=== PATIENT | female | born 1955 | race African-American/Black ===

== ENCOUNTER → 2019-01-04 | Outpatient (CLI) | payer BC ==
--- NOTE | 2019-01-08 09:10 | XCELERA REPORT ---
[address] [address] Lower Extremity Arterial Evaluation Name: JACQUELINE JACKSON Age: 63 yrs Gender: Female : 1955 Patient Status: Outpatient Patient Location: [facility] Study Date: 01/04/2019 01:23 PM Procedure: A color flow and duplex scan of the lower extremity arteries was performed bilaterally with velocity and waveform anaylsis. Ankle brachial indicies performed. Reason For Study: PAIN Ordering Physician: DESITNY COSME Performed By: Gaviota Bird Measurements and Calculations Right Left LOSS PREVENTION AUDITOR PSV 145.4 169.9 cm/sec Prox PFA PSV -125.7 -145.4cm/sec Prox SFA PSV -130.4 -143.0cm/sec Mid SFA PSV -99.9 -112.4cm/sec Dist SFA PSV -97.4 -108.2cm/sec Prox Pop A PSV 91.1 76.6 cm/sec Prox VALENTINA PSV 76.8 59.7 cm/sec Dist VALENTINA PSV 71.5 71.7 cm/sec Prox SQUARE CUTTER PSV 86.7 98.7 cm/sec Dist SQUARE CUTTER PSV 81.3 91.3 cm/sec Clark Pedis PSV 102.5 42.9 cm/sec Right Side Arterial Evaluation Normal velocity and triphasic waveforms noted from the Common Femoral artery to the infrageniculate vessels . Biphasic with normal velocity in the Dorsalis Pedis artery. Ankle Brachial index 1.14. Left Side Arterial Evaluation Normal velocity and triphasic waveforms noted from the Common Femoral artery to the infrageniculate vessels . Biphasic with normal velocity in the Dorsalis Pedis artery. Ankle Brachial index 1.08. Interpretation Summary Mild hemodynamically significant lesions in the left lower extremity only, on duplex imaging, at rest. Near normal study with slight Dorsalis Pedis changes only. ANDREW's are normal suggesting normal supply, no obstructions. : DESTINY COSME > Thor Sun
== END ==
LOC: SP 13:01
PROVIDERS: ATTEND Nurse Practitioner Primary Care
DX: M79.662 Pain in left lower leg (principal)
CPT/HCPCS: 93925

== ENCOUNTER 2019-05-04 23:27 | Emergency (ER) | payer BC ==
--- NOTE | 2019-05-04 23:44 | ER Document Report ---
ED Medical Screen (RME) - General Chief Complaint: Weakness Stated Complaint: LEFT SIDED WEAKNESS Time Seen by Provider: 05/04/19 23:36 Primary Care Provider: DESTINY COSME FNP-C [Primary Care Provider] - Follow up as needed Mode of Arrival: Wheelchair Information source: Patient Notes: 63-year-old female presents emergency department with left arm and leg weakness. Reports symptoms for the past 2 weeks. She reports that for 20 years she was on a blood thinner generic Plavix for her legs. Reports her primary care provider took her off her blood thinner 2 months ago. She reports 2 weeks ago she started having the weakness to her arm or leg. She reports she has been falling. 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 Patient with obvious weakness to her left arm and leg. No complaints of fever vomiting diarrhea. Denies history of stroke although she mentions that her primary care provider reports she may have had a mini stroke and was setting up a referral to neurologist. I have greeted and performed a rapid initial assessment of this patient. A comprehensive ED assessment and evaluation of the patient, analysis of test results and completion of the medical decision making process will be conducted by additional ED providers. Dictation of this chart was performed using voice recognition software; therefore, there may be some unintended grammatical errors. TRAVEL OUTSIDE OF THE [place] IN LAST 30 DAYS: No Doctor's Discharge - Discharge Referrals: DESTINY COSME FNP-C [Primary Care Provider] - Follow up as needed
[2019-05-05 00:38] LABS: INTERNATIONAL RATION (INR) 0.93
[2019-05-05 00:39] LABS: PARTIAL THROMBOPLASTIN TIME 34.6 SEC (23.5-35.8)
[2019-05-05 00:40] LABS: ABSOLUTE BASOPHILS # (AUTO) 0.1 10^3/uL (0.0-0.2); ABSOLUTE EOSINOPHILS # (AUTO) 0.1 10^3/uL (0.0-0.6); ABSOLUTE LYMPHOCYTES (AUTO) 3.8 10^3/uL (0.5-4.7); ABSOLUTE MONOCYTES (AUTO) 0.5 10^3/uL (0.1-1.4); ABSOLUTE NEUT (AUTO) 2.9 10^3/uL (1.7-8.2); BASOPHILS % (AUTO) 0.9 % (0-2); HEMATOCRIT 46.8 % (36.0-47.0); HEMOGLOBIN 16.3 g/dL (12.0-15.5); LYMPHOCYTES % (AUTO) 51.2 % (13-45); MEAN CORPUSCULAR HEMOGLOBIN 33.4 pg (27.0-33.4); MEAN CORPUSCULAR HGB CONC 34.7 g/dL (32.0-36.0); MEAN CORPUSCULAR VOLUME 96 fl (80-97); MONOCYTES % (AUTO) 7.1 % (3-13); PLATELET COUNT 353 10^3/uL (150-450); RED BLOOD COUNT 4.86 10^6/uL (3.72-5.28); RED CELL DISTRIBUTION WIDTH 14.3 % (11.5-14.0); SEGMENTED NEUTROPHILS % (AUTO) 39.8 % (42-78); TOTAL CELLS COUNTED % (AUTO) 100 %; WHITE BLOOD COUNT 7.4 10^3/uL (4.0-10.5)
[2019-05-05 00:45] LABS: ALBUMIN 4.3 g/dL (3.5-5.0); ALKALINE PHOSPHATASE 85 U/L (38-126); ANION GAP 9 (5-19); ASPARTATE AMINO TRANSFERASE 22 U/L (14-36); BILIRUBIN,DIRECT 0.2 mg/dL (0.0-0.4); BILIRUBIN,TOTAL 0.4 mg/dL (0.2-1.3); BLOOD UREA NITROGEN 12 mg/dL (7-20); CALCIUM 10.3 mg/dL (8.4-10.2); CARBON DIOXIDE 23 mmol/L (22-30); CHLORIDE 107 mmol/L (98-107); CREATINE KINASE 122 U/L (30-135); GLUCOSE 100 mg/dL (75-110); POTASSIUM 4.3 mmol/L (3.6-5.0); TOTAL PROTEIN 7.5 g/dL (6.3-8.2)
--- NOTE | 2019-05-05 00:51 | ER Document Report ---
ED Neuro Symptoms/Deficit - General Mode of Arrival: Wheelchair Notes: Patient is a 63-year-old female that comes to the emergency department for chief complaint of left arm weakness and left leg weakness. Patient states she has noticed this for over a week, she was hoping there is nothing wrong and it would simply go away but it has become more noticeable. Her son brought her to the emergency department. She denies difficulty with speech or vision but she does report her balance is worse than previously. She denies history of CVA in the past, she does smoke, have a history of hypertension and hyperlipidemia. She was previously on Plavix 2 months ago but was taken off because there was not a clear indication for this before. TRAVEL OUTSIDE OF THE [place] IN LAST 30 DAYS: No <OPAL LORENZO - Last Filed: 05/05/19 06:48> <KVNG BARRERA - Last Filed: 05/05/19 16:24> - General Chief Complaint: S/S of Possible Stroke Stated Complaint: LEFT SIDED WEAKNESS Time Seen by Provider: 05/04/19 23:36 Primary Care Provider: DESTINY COSME FNP-C [Primary Care Provider] - Follow up as needed - Related Data Allergies/Adverse Reactions: aspirin Adverse Reaction (Verified 05/04/19 23:44) Past Medical History - General Information source: Patient - Social History Smoking Status: Current Every Day Smoker Smoking Education Provided: Yes - <3 min Frequency of alcohol use: None Drug Abuse: None Lives with: Family Family History: Reviewed & Not Pertinent Patient has suicidal ideation: No Patient has homicidal ideation: No - Past Medical History Cardiac Medical History: Reports: Hx Hypercholesterolemia, Hx Hypertension - Immunizations Immunizations up to date: Yes Hx Diphtheria, Pertussis, Tetanus Vaccination: Yes <OPAL LORENZO - Last Filed: 05/05/19 06:48> Review of Systems - Review of Systems Constitutional: No symptoms reported EENT: No symptoms reported Cardiovascular: No symptoms reported Respiratory: No symptoms reported Gastrointestinal: No symptoms reported Genitourinary: No symptoms reported Female Genitourinary: No symptoms reported Musculoskeletal: See HPI Skin: No symptoms reported Hematologic/Lymphatic: No symptoms reported Neurological/Psychological: See HPI <OPAL LORENZO Last Filed: 05/05/19 06:48> Physical Exam - Vital signs Vitals: Temp Pulse Resp BP Pulse Ox 97.2 F 85 18 126/76 H 96 05/04/19 23:37 05/04/19 23:37 05/04/19 23:37 05/04/19 23:37 05/04/19 23:37 - Notes Notes: GENERAL: Alert, interacts well. No acute distress. HEAD: Normocephalic, atraumatic. EYES: Pupils equal, round, and reactive to light. Extraocular movements intact. ENT: Oral mucosa moist, tongue midline. Oropharynx unremarkable. Airway patent. NECK: Full range of motion. Supple. Trachea midline. LUNGS: Clear to auscultation bilaterally, no wheezes, rales, or rhonchi. No res piratory distress. HEART: Regular rate and rhythm. No murmur ABDOMEN: Soft, non-tender. Non-distended. Bowel sounds present in all 4 quadrants. GENITOURINARY: Deferred EXTREMITIES: Moves all 4 extremities spontaneously. No edema, normal radial and dorsalis pedis pulses bilaterally. No cyanosis. BACK: no cervical, thoracic, lumbar midline tenderness. No saddle anesthesia, normal distal neurovascular exam. NEUROLOGICAL: Alert and oriented x3. Normal speech. Patient cannot perform hmnszp-[id number]-[id number] testing with the left arm, has pronator drift of the left arm, and his obvious strength deficit in the left leg. Otherwise completely normal neurological exam. Cranial nerves II through XII grossly intact. PSYCH: Normal affect, normal mood. SKIN: Warm, dry, normal turgor. No rashes or lesions noted. <OPAL LORENZO - Last Filed: 05/05/19 06:48> - Vital signs Vitals: Temp Pulse Resp BP Pulse Ox 97.2 F 85 18 126/76 H 96 05/04/19 23:37 05/04/19 23:37 05/04/19 23:37 05/04/19 23:37 05/04/19 23:37 <KVNG BARRERA - Last Filed: 05/05/19 16:24> Course - Re-evaluation Re-evalutation: Patient with NIH of 4, she does have pronator drift on the left, difficulty with finger-nose testing on the left arm, weakness in the left arm against gravity, and weakness in the left leg. No neurological deficits otherwise including no facial droop or visual symptoms. Normal speech and cognition. Patient well outside of the window for TPA. Chest x-ray unremarkable, CBC, chemistry unremarkable, urinalysis borderline and urine culture was placed. EKG shows no acute findings. CT of the head showing hypodense area with 2 mm midline shift on the right side which is either ischemic stroke versus mass. No noted intracranial bleed. I discussed with Dr. Melchor. He does not recommend transfer at this time, he does recommend that patient have MRI order placed and in the morning this MRI can be performed to ascertain whether this is ischemic stroke or mass. It is felt this is more likely an old stroke. I did discuss with patient, she is very agreeable to stay for the MRI to help with the disposition. - Vital Signs Vital signs: Temp Pulse Resp BP Pulse Ox 97.2 F 75 13 125/75 97 05/04/19 23:37 05/05/19 00:26 05/05/19 00:26 05/05/19 00:26 05/05/19 00:26 - Laboratory Result Diagrams: 05/05/19 00:20 05/05/19 00:20 Laboratory results interpreted by me: 05/05/19 05/05/19 00:20 00:20 Hgb 16.3 H RDW 14.3 H Lymph % (Auto) 51.2 H Seg Neutrophils % 39.8 L Est GFR (MDRD) Non-Af 58 L Calcium 10.3 H - EKG Interpretation by Me Additional EKG results interpreted by me: Sinus rhythm at a rate of 69, QTC of 425, normal axis, no T wave inversions or ST segment changes in consecutive leads. <OPAL LORENZO - Last Filed: 05/05/19 06:48> - Re-evaluation Re-evalutation: 05/05/19 08:05 Assumed care of patient from LONNIE Lorenzo. Patient with left-sided weakness that has been ongoing and progressively getting worse for the past [address] is concerning for an acute stroke but also there may be a possible mass. We are pending MRI to evaluate for mass to decide level of care for admission. Patient is well aware of the plan. Of note she has not been given aspirin because she has an allergy to it. She is not on any other blood thinners. Went and examined patient. She indeed does have left-sided pronator drift. And left leg weakness. She has no dysarthria. She has no nystagmus. She has difficulty with [id number]-ra-wwlo on the left arm. She is otherwise stable. We will continue to monitor. 05/05/19 12:41 Noted MRI reading. Discussed with Dr. Duran, ER attending. We will give the patient 10 mg of Decadron. Rounded on patient and updated her about MRI findings. She has a preference to be transferred to [facility] in [place]. Page [facility] neurosurgery. Spoke with Dr. Torres, neurosurgery. We discussed MRI findings, CXR results, exam findings. He agrees with plan for transfer -- requests copies of imaging studies and labs. Would like for patient to be admitted to the hospitalist service. Will await return page from hospitalist team. 05/05/19 13:[address] Christopher De Dios, hospitalist at [facility]. He accepts patient. Would like for her to go to a medical bed. Updated Dr. Duran and she agrees with the plan. Patient is stable and will await transfer. Impression: Right sided parietal mass with vasogenic edema and mass effect. This is causing left sided arm and leg weakness. Patient will be transferred to [facility] for higher level of care. Patient aware of the plan and agrees. 05/05/19 16:22 Transport is here for patient. Rounded on her. She is very stable. Her vital signs have remained the same. She has not developed any further weakness. She has no dysarthria. She is alert and interactive. She is safe for transport. - Vital Signs Vital signs: Temp Pulse Resp BP Pulse Ox 97.2 F 69 17 117/76 94 05/04/19 23:37 05/05/19 06:00 05/05/19 06:01 05/05/19 06:01 05/05/19 06:01 - Laboratory Result Diagrams: 05/05/19 00:20 05/05/19 00:20 Laboratory results interpreted by me: 05/05/19 05/05/19 05/05/19 00:20 00:20 00:30 Hgb 16.3 H RDW 14.3 H Lymph % (Auto) 51.2 H Seg Neutrophils % 39.8 L Est GFR (MDRD) Non-Af 58 L Calcium 10.3 H Urine Blood MODERATE H Ur Leukocyte Esterase TRACE H <BARRERA,KVNG M - Last Filed: 05/05/19 16:24> ED Alteplase [employer]/Exc Criteria - Inclusion Criteria: 1: Patient presented to ED within 3 hours of acute ischemic stroke symptom onset? -: No 2: Did baseline CT exclude intracranial hemorrhage and/or other risk factors? -: No 3: Is the age of the patient 18 years of age or greater? -: Yes : If any of the above questions are answered "NO" then stop, patient is not a candidate for Alteplase, : If all of the above questions are answered "YES" then continue with Exc lusion Criteria. <MANIMICHAELOPAL - Last Filed: 05/05/19 06:48> ED NIH Stroke Scale - NIH Stroke Scale *: 1. NIH scale should be completed with appropriate accompanying assessment tools. *: 2. The NIH should reflect what the patient is capable of doing and should not be coached by the clinician. 1a. Level of Consciousness: 0=Alert;keenly responsive -: 1=Drowsy -: 2=Obtunded -: 3=Coma/unresponsive or reflex to noxious stimuli. 1a. Responses: 0 1b. Orientation Questions: a. What month is it? -: b. How old are you? -: 0=Answers both questions correctly. -: 1=Answers one question correctly or patient is intubated or has orotracheal trauma. -: 2=Answers neither question correctly. 1b. Responses: 0 1c. Response to commands: a. Open and close eyes? -: b. Range Mounter and release hand? -: Credit is given despite weakness. Demonstration of task is permitted. Substitute command if hands cannot be used. -: 0=Performs both tasks correctly -: 1=Performs one task correctly -: 2=Performs neither task correctly 1c. Responses: 0 2. Gaze: Establish eye contact and instruct patient to "Follow my finger" -: 0=Normal -: 1=Partial gaze palsy. Gaze is abnormal in one or both eyes, but where forced deviation or total gaze paresis is not present. -: 2=Forced deviation or total gaze paresis. 2. Responses: 0 3. Visual Garsia: Sees fingers in all four quadrants. -: 0=No visual loss. -: 1=Partial hemianopsia. -: 2=Complete hemianopsia. -: 3=Bilateral hemianopsia (including Cortical blindness) 3. Responses: 0 4. Facial Movement: Instruct patient to: -: a. Show me your teeth -: b. Raise your eyebrows -: c. Close your eyes -: d. Smile -: 0=Normal symmetrical movement -: 1=Minor paralysis (flattened nasolabial fold, asymmetry on smiling). -: 2=Partial paralysis (total or near total paralysis of lower face). -: 3=Complete paralysis of upper and lower face 4. Responses: 0 5. Motor functions (left arm): Alternate sides and extend each arm with palms down (90 degrees if sitting or 45 degrees for supine). -: 0=No drift;limb holds for full 10 seconds. -: 1=Drift; limb holds but drifts down before full 10 seconds, but does not hit bed. -: 2=Some effort against gravity; limb cannot get to or maintain position. -: 3=No effort against gravity; limb falls. -: 4=No movement. -: UN=Amputation, joint fusion, explain in comments. 5. Responses (left arm): 1 5. Motor Functions (right arm): Alternate sides and extend each arm with palms down (90 degrees if sitting or 45 degrees for supine). -: 0=No drift;limb holds for full 10 seconds. -: 1=Drift; limb holds but drifts down before full 10 seconds, but does not hit bed. -: 2=Some effort against gravity; limb cannot get to or maintain position. -: 3=No effort against gravity; limb falls. -: 4=No movement. -: UN=Amputation, joint fusion, explain in comments. 5. Responses (right arm): 0 6. Motor Functions (left leg): With patient lying supine, alternate sides and extend each leg (30 degrees always while supine). -: 0=No drift, leg holds position for full 5 seconds -: 1=Drift; leg falls before full 5 seconds but does not hit bed. -: 2=Some effort against gravity, leg falls to bed but some effort against gravity. -: 3=No effort against gravity, leg falls to bed immediately. -: 4=No movement. -: UN=Amputation, joint fusion; explain in comments. 6. Responses (left leg): 2 6. Motor Functions (right leg): With patient lying supine, alternate sides and extend each leg (30 degrees always while supine). -: 0=No drift, leg holds position for full 5 seconds -: 1=Drift; leg falls before full 5 seconds but does not hit bed. -: 2=Some effort against gravity, leg falls to bed but some effort against gravity. -: 3=No effort against gravity, leg falls to bed immediately. -: 4=No movement. -: UN=Amputation, joint fusion; explain in comments. 6. Responses (right leg): 0 7. Limb Ataxia: With eyes open instruct patient to: -: a. "Touch your finger to your nose". -: b. "Touch your heel to your peña" -: 0=Absent -: 1=Present in one limb. -: 2=Present in two limbs. -: UN=Amputation or joint fusion; explain in comments. 7. Responses: 1 8. Sensory: Test sensation using pinprick or noxious stimuli. Test as many body parts as possible. -: 0=Normal;no sensory loss -: 1=Mile to moderate sensory loss (patient feels pin prick but is less sharp on affected side). -: 2=Severe or total sensory loss. 8. Responses: 0 9. Best Language: Instruct patient to: -: a. "Describe what you see in this picture." -: b. "Name the items in this picture." -: c. "Read these sentences." -: 0=No aphasia, normal -: 1=Mild to moderate aphasia. -: 2=Severe aphasia -: 3=Mute, global aphasia, no usable speech or auditory comprehension. 9. Responses: 0 10. Articulation, Dysarthia: Instruct patient to: -: "Read these words" or "Repeat these words" -: 0=Normal -: 1=Mild to moderate; patient may slur some words but can be understood without difficulty. -: 2=Severe; patients speech so slurred as to be unintelligible in the absence of dysphasia. -: UN=Intubated or other physical barrier, explain in comments. 10. Responses: 0 11. Extinction or inattention: 0=No abnormality -: 1= Visual, tactile, auditory, spatial, or personal inattention or extinction to bilateral simulation in one or the sensory modalities. -: 2=Profound niurka-inattention or niurka-inattention to more than one modality; does not recognize own hand. 11. Responses: 0 Total Score: 4 <OPAL LORENZO - Last Filed: 05/05/19 06:48> Discharge <OPAL LORENZO - Last Filed: 05/05/19 06:48> <KVNG BARRERA - Last Filed: 05/05/19 16:24> - Discharge Clinical Impression: Left arm weakness, Left leg weakness Condition: Stable Disposition: [facility] Referrals: DESTINY COSME, NURSE WOUND-C [Primary Care Provider] - Follow up as needed
[2019-05-05 00:52] LABS: PROTHROMBIN TIME 12.5 SEC (11.4-15.4)
[2019-05-05 00:57] LABS: CREATINE KINASE MB 0.91 ng/mL (<4.55)
[2019-05-05 00:58] LABS: TROPONIN I < 0.012 ng/mL
--- NOTE | 2019-05-05 01:11 | RADIOLOGY REPORT (SQ) ---
CT HEAD WITHOUT IV CONTRAST EXAM DATE: 05/04/2019 11:41 PM CDT HISTORY: Left arm and leg weakness. COMPARISON: None. TECHNIQUE: CT scan of the brain without IV contrast. This exam was performed according to our departmental dose-optimization program, which includes automated exposure control, adjustment of the mA and/or kV according to patient size and/or use of iterative reconstruction technique. FINDINGS: There is a large area of hypodensity predominantly involving the white matter of the right frontal and parietal lobes, with mass effect on the overlying cortical sulci along with 2 mm right to left midline shift. No definite lesion is identified although evaluation is limited without IV contrast. No acute intracranial hemorrhage. The paranasal sinuses are clear. No acute skull fracture. IMPRESSION: 1. Large area of hypodensity in the right hemicranium with overlying mass effect and 2 mm midline shift. This may be secondary to an occult mass versus acute ischemia. Contrast-enhanced MRI is recommended for complete evaluation. 2. No acute intracranial hemorrhage.
--- NOTE | 2019-05-05 01:22 | RADIOLOGY REPORT (SQ) ---
EXAM DESCRIPTION: XR CHEST 1 VIEW COMPLETED DATE/TME: 05/04/2019 23:41 CLINICAL HISTORY: 63 years, Female, LEFT ARM LEGWEAKNESS COMPARISON: None. NUMBER OF VIEWS: 1 TECHNIQUE: Single PA view of the chest was obtained. LIMITATIONS: None. FINDINGS: Unremarkable cardiac and mediastinal silhouette. Heart size is normal. Lungs are clear without focal opacity, pneumothorax or pleural effusions. The visualized bones are within normal limits. IMPRESSION: No acute cardiopulmonary abnormalities. copyright 2010 [employer]- All Rights Reserved
[2019-05-05 02:17] LABS: APPEARANCE,URINE CLEAR; BILIRUBIN,URINE NEGATIVE (NEGATIVE); COLOR,URINE STRAW; GLUCOSE, URINE NEGATIVE (NEGATIVE); KETONES,URINE NEGATIVE (NEGATIVE); LEUKOCYTE ESTERASE,URINE TRACE (NEGATIVE); NITRITE,URINE NEGATIVE (NEGATIVE); PROTEIN,URINE NEGATIVE (NEGATIVE); URINE SPECIFIC GRAVITY 1.004; UROBILINOGEN,URINE NEGATIVE mg/dL (<2.0)
--- NOTE | 2019-05-05 08:09 | EKG REPORT ---
SEVERITY:- OTHERWISE NORMAL ECG - SINUS RHYTHM MINIMAL ST ELEVATION, INFERIOR LEADS : Confirmed by: Tonny Avalos MD 05-May-2019 08:08:20
--- NOTE | 2019-05-05 11:51 | RADIOLOGY REPORT (SQ) ---
EXAM DESCRIPTION: MRI HEAD COMBO COMPLETED DATE/TIME: 05/05/2019 11:14 am REASON FOR STUDY: eval abnormal CT, left sided weakness COMPARISON: None. TECHNIQUE: Multiplanar imaging includes noncontrasted T1, T2, FLAIR, diffusion with ADC map and post gadolinium contrast T1 sequences. Images stored on PACS. CONTRAST TYPE AND DOSE: 10 mL Dotarem. RENAL FUNCTION: Not indicated. ACR Type II contrast agent associated with few, if any, unconfounded cases of NSF LIMITATIONS: None. FINDINGS: ANATOMY: See below. CSF SPACES: Normal in size and contour. No hemorrhage. CEREBRUM: There is a 12 x 15 mm enhancing intra-axial mass in the right parietal lobe. There is wagner cent vasogenic edema. Approximately 3 mm of right to left midline shift. No hemorrhage. POSTERIOR FOSSA: No signal alteration. No hemorrhage. No edema, masses, or mass effect. Internal albert tory canals, cerebellopontine angles, mastoids normal. No enhancing lesions. No abnormal enhancement post contrast. DIFFUSION IMAGING: Negative for acute or subacute infarction. ORBITS: No masses. Globes normal. PARANASAL SINUSES: No fluid levels. Mucosa normal. OTHER: No other significant finding. IMPRESSION: Right parietal lobe solitary mass with associated vasogenic edema suspicious for astrocy sugar or solitary metastasis. No hemorrhage. EVIDENCE OF ACUTE STROKE: NO. TECHNICAL DOCUMENTATION: JOB ID: [id number] [employer]- All Rights Reserved Reading location - IP/workstation name: [email or web address]
[2019-05-05] MEDS ORDERED: DEXAMETHASONE SOD PHOS INJ 10 MG/1 ML VIAL IV ONE (11:53)
[2019-05-05 16:49] VITALS: BP 119/66
== END 2019-05-05 16:35 | disposition short-term general hospital (02) ==
LOC: ER 23:27
DX: R53.1 Weakness (principal); G93.9 Disorder of brain, unspecified; F17.200 Nicotine dependence, unspecified, uncomplicated; I10 Essential (primary) hypertension; E78.5 Hyperlipidemia, unspecified; Z88.6 Allergy status to analgesic agent
CPT/HCPCS: 93005; 36415; 87086; 82553; 82550; 85025; 85610; 85730; 80053; 81001; 84484; 70553; 71045; 70450; 93010; A9576; J1100; 96374; 99285

== ENCOUNTER → 2019-07-02 | Outpatient (CLI) | payer BC ==
--- NOTE | 2019-07-02 16:04 | RADIOLOGY REPORT (SQ) ---
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 RADIONUCLIDE AND DOSE: 21.5 millicuries Tc99m HDP. The route of agent administration: Intravenous. ADDITIONAL DRUGS AND DOSES: None. TECHNIQUE: Routine delayed images at 3 hour post radionuclide injection acquired of the bony skeleto n including anterior and posterior whole-body projections and additional focused images as needed. LIMITATIONS: None. FINDINGS: BONES: Focal increased uptake posterior L3 vertebral body. Uptake right superior calvariu m. KIDNEYS: Symmetric excretion without obstruction. OTHER: No other significant finding. IMPRESSION: Uptake associated with recent craniotomy. Nonspecific uptake L3. COMMENT: Quality measure 147: Current bone scan is compared with any available plain radiographs, p rior bone scans, and CT/MRI. TECHNICAL DOCUMENTATION: JOB ID: [id number] [employer]- All Rights Reserved Reading location - IP/workstation name: [email or web address]
== END ==
LOC: RAD 08:24
PROVIDERS: ATTEND Internal Medicine Hematology & Oncology
DX: C34.90 Malignant neoplasm of unspecified part of unspecified bronchus or lung (principal); C79.31 Secondary malignant neoplasm of brain
CPT/HCPCS: 78306; A9561; Q9969

== ENCOUNTER 2019-07-09 06:32 | Day surgery (SDC) | payer BC ==
[~2019-07-09 06:32] MED LIST: CEFAZOLIN SODIUM 1 GM in DEXTROSE 5%-WATER 50 ML IV PRN; DEXTROSE 5%-1/2 NORMAL SALINE 1,000 ML IV PRN; DIAZEPAM 5 MG TABLET PO PRN; OXYCODONE-ACETAMINOPHEN 5-325 MG TABLET PO PRN
[2019-07-09] MEDS ORDERED: OXYCODONE-ACETAMINOPHEN 5-325 MG TABLET ONE (06:40)
[2019-07-09] MEDS ORDERED: DIAZEPAM 5 MG TABLET ONE (06:40)
[2019-07-09 07:32] LABS: ABSOLUTE BASOPHILS # (AUTO) 0.1 10^3/uL (0.0-0.2); ABSOLUTE EOSINOPHILS # (AUTO) 0.1 10^3/uL (0.0-0.6); ABSOLUTE LYMPHOCYTES (AUTO) 2.7 10^3/uL (0.5-4.7); ABSOLUTE MONOCYTES (AUTO) 0.5 10^3/uL (0.1-1.4); ABSOLUTE NEUT (AUTO) 2.7 10^3/uL (1.7-8.2); BASOPHILS % (AUTO) 0.9 % (0-2); EOSINOPHILS % (AUTO) 1.5 % (0-6); HEMATOCRIT 44.6 % (36.0-47.0); HEMOGLOBIN 15.6 g/dL (12.0-15.5); LYMPHOCYTES % (AUTO) 44.5 % (13-45); MEAN CORPUSCULAR HEMOGLOBIN 34.1 pg (27.0-33.4); MEAN CORPUSCULAR VOLUME 97 fl (80-97); PLATELET COUNT 370 10^3/uL (150-450); RED BLOOD COUNT 4.58 10^6/uL (3.72-5.28); SEGMENTED NEUTROPHILS % (AUTO) 45.1 % (42-78); TOTAL CELLS COUNTED % (AUTO) 100 %
[2019-07-09 07:37] LABS: ANION GAP 6 (5-19); BLOOD UREA NITROGEN 13 mg/dL (7-20); CALCIUM 9.7 mg/dL (8.4-10.2); CARBON DIOXIDE 27 mmol/L (22-30); CHLORIDE 109 mmol/L (98-107); GLUCOSE 100 mg/dL (75-110); POTASSIUM 4.1 mmol/L (3.6-5.0)
[2019-07-09] MEDS ORDERED: LIDOCAINE 0.5% INJ-PF (5 MG/ML) 50 ML SDV ONE ×2 (08:16→09:24)
[2019-07-09] MEDS ORDERED: BACITRACIN INJ 50,000 UNIT VIAL ONE (08:16)
[2019-07-09] MEDS ORDERED: MIDAZOLAM 2 MG/2 ML INJ ONE (08:22)
[2019-07-09] MEDS ORDERED: FENTANYL CITRATE INJ/PF 100 MCG/2 ML AMPUL ONE (08:22)
--- NOTE | 2019-07-09 08:46 | RADIOLOGY REPORT (SQ) ---
EXAM DESCRIPTION: CHEST SINGLE VIEW COMPLETED DATE/TIME: 07/09/2019 6:47 am REASON FOR STUDY: preop COMPARISON: 05/05/2019. EXAM PARAMETERS: NUMBER OF VIEWS: One view. TECHNIQUE: Single frontal radiographic view of the chest acquired. RADIATION DOSE: NA LIMITATIONS: None. FINDINGS: LUNGS AND PLEURA: No opacities, masses or pneumothorax. No pleural effusion. MEDIASTINUM AND HILAR STRUCTURES: No masses. Contour normal. HEART AND VASCULAR STRUCTURES: Heart normal in size. Normal vasculature. BONES: No acute findings. HARDWARE: None in the chest. OTHER: No other significant finding. IMPRESSION: NO ACUTE RADIOGRAPHIC FINDING IN THE CHEST. TECHNICAL DOCUMENTATION: JOB ID: [id number] [employer]- All Rights Reserved Reading location - IP/workstation name: [email or web address]
--- NOTE | 2019-07-09 09:52 | Discharge Summary ---
Discharge Summary (SDC) - Discharge Final Diagnosis: Lung cancer Date of Surgery: 07/09/19 Discharge Date: 07/09/19 Condition: Fair Treatment or Instructions: Discharge home [after recovery per ASU criteria]. Diet ,as tolerated, when fully awake advance as tolerated. Activities within moderation encouraged. Follow up in my office by appointment in about [1 week]. Call for appointment. Leave wounds [covered], [keep clean and dry, until office visit in 1 to 2 weeks]. Hold of on school/work [until evaluation in office]. Meds per med rec. Percocet. May shower [in 48 hrs], [try to keep operated area as dry as possible]. Prescriptions: Oxycodone HCl/Acetaminophen [Percocet 5-325 mg Tablet] 1 tab PO ASDIR PRN #15 tab PRN Reason: Referrals: DESTINY COSME FNP-C [Primary Care Provider] - Discharge Diet: As Tolerated Respiratory Treatments at Home: Deep Breathing/Coughing Discharge Activity: Activity As Tolerated Report the Following to Your Physician Immediately: Shortness of Breath
--- NOTE | 2019-07-09 09:55 | Operative Report ---
Operative Report DATE OF SURGERY: 07/09/19 PREOPERATIVE DIAGNOSIS: Lung cancer. POSTOPERATIVE DIAGNOSIS: Lung cancer. OPERATION: 1. Ultrasound evaluation and guided access into the right internal jugular vein. 2. Insertion of Port-A-Cath via real-time access in the right internal jugular vein. 3. Angiogram and interpretation. SURGEON: SONIA LANCE INFORMATION TECHNOLOGY ACCOUNT MANAGER: None. ANESTHESIA: Moderate Sedation TISSUE REMOVED OR ALTERED: Not applicable. COMPLICATIONS: None. ESTIMATED BLOOD LOSS: 5 mL. INTRAOPERATIVE FINDINGS: Of a satisfactory right internal jugular vein about 1.2 cm in diameter. Safe and secure access. Position of catheter with the tip down in the right atrium. Easy egress of blood and ingress of heparinized solution. Postprocedure chest x-ray showed hardware in good position, no untoward findings. PROCEDURE: After obtaining informed consent, the patient was taken to the [place] and positioned supine. The [right] neck and chest were prepared with chlorhexidine and draped out with sterile linen. After the " universal timeout", in which it was verified that the patient continued to receive antibiotic, the procedure commenced. A steriley sheathed ultrasound probe was used to evaluate the [right] internal jugular vein. Local anesthesia was infiltrated adjacent to the probe. Access into the [right] internal jugular vein was obtained using a micropuncture needle, followed by micropuncture wire and then a micropuncture catheter. This was followed by introduction of a 0.035 guidewire the tip of which was placed down into the inferior vena cava . The port sites was marked , locally anesthetized and incision made. Dissection now proceeded to the deep subcutaneous subcutaneous tissues so that a pocket for the port was made. Meticulous hemostasis was secured and the catheter was tunneled between the 2 incisions. Proximally, the catheter was now positioned using a peel-away sheath. Distally the catheter was tailored to an appropriate length and then mated to the port using the contained fixating device. The port was now placed in the pocket and the catheter optimally positioned. The port was accessed with a Wise needle and an angiogram done under digital subtraction. The findings as dictated. With adequate and satisfactory positioning, both lumens of the chamber were irrigated with heparinized solution. The wounds were now closed using interrupted 3-0 PDS to the subcutaneous tissues and a continuous subcuticular suture of 4-0 Monocryl to the skin. These are reinforced with Steri-Strips over benzoin and then dressings applied. Time: 0.8 minute. Dose: 3.51 m Gy Contrast: 5 Mls. Isovue 300. Copies of the dictated operative report for Dr. Sonia Sun MD.
--- NOTE | 2019-07-09 10:00 | RADIOLOGY REPORT (SQ) ---
EXAM DESCRIPTION: PORTACATH INSERTION COMPLETED DATE/TIME: 07/09/2019 9:39 am REASON FOR STUDY: C34.9 LUNG CA/C79.31 BRAIN CA C34.90 MALIGNANT NEOPLASM OF UNSP PART OF UNSP BRON CHUS OR L COMPARISON: None. FLUOROSCOPY TIME: 0.8 minutes Spot images saved to PACS. TECHNIQUE: Intra-operative images acquired during surgical procedure to evaluate progress. NUMBER OF IMAGES: 3 LIMITATIONS: None. FINDINGS: Fluoroscopy was provided for intraoperative procedure. Please refer to the operative repo rt for further discussion. IMPRESSION: IMAGE(S) OBTAINED DURING PROCEDURE. COMMENT: Quality ID [id number]: Final reports for procedures using fluoroscopy that document radiation exp osure indices, or exposure time and number of fluorographic images (if radiation exposure indices are not available) Please consult full operative report of the attending physician for description of the procedure. TECHNICAL DOCUMENTATION: JOB ID: [id number] [employer]- All Rights Reserved Reading location - IP/workstation name: [email or web address]
[2019-07-09 11:24] VITALS: BP 101/61
== END 2019-07-09 11:15 | disposition home or self-care (01) ==
LOC: CCL 06:32
PROVIDERS: ATTEND Surgery
DX: C34.90 Malignant neoplasm of unspecified part of unspecified bronchus or lung (principal); I10 Essential (primary) hypertension; E78.00 Pure hypercholesterolemia, unspecified; Z79.899 Other long term (current) drug therapy; F17.210 Nicotine dependence, cigarettes, uncomplicated; C79.31 Secondary malignant neoplasm of brain; Z01.818 Encounter for other preprocedural examination
CPT/HCPCS: 36415; 85025; 80048; 36561; 76937; 77001; 71045; C1769; C1752; C1788; Q9967; J2250; J3490 ×2; J0690; J3010; J7060; J1644

== ENCOUNTER 2019-08-15 12:22 | Outpatient (CLI) | payer BC ==
[~2019-08-15 12:22] MED LIST changes: -CEFAZOLIN SODIUM 1 GM in DEXTROSE 5%-WATER 50 ML IV PRN; -DEXTROSE 5%-1/2 NORMAL SALINE 1,000 ML IV PRN; -DIAZEPAM 5 MG TABLET PO PRN; +NORMAL SALINE 250 ML IV PRN; -OXYCODONE-ACETAMINOPHEN 5-325 MG TABLET PO PRN; +PEMBROLIZUMAB 200 MG in NORMAL SALINE 50 ML IV PRN
[2019-08-15 13:23] VITALS: BP 135/76
== END 2019-08-15 14:13 | disposition home or self-care (01) ==
LOC: II 12:22 → 5TH 13:16 → II 14:13
PROVIDERS: ATTEND Internal Medicine
DX: Z51.11 Encounter for antineoplastic chemotherapy (principal); C34.90 Malignant neoplasm of unspecified part of unspecified bronchus or lung
CPT/HCPCS: 96413; J9271; J1642

== ENCOUNTER → 2019-08-31 | Outpatient (CLI) | payer BC ==
--- NOTE | 2019-08-31 13:39 | RADIOLOGY REPORT (SQ) ---
EXAM DESCRIPTION: SHOULDER RIGHT 2 OR MORE VIEWS COMPLETED DATE/TIME: 08/31/2019 11:30 am REASON FOR STUDY: M25.511 PAIN IN RIGHT SHOULDER M25.511 PAIN IN RIGHT SHOULDER M54.2 CERVICALGIA COMPARISON: None. NUMBER OF VIEWS: Three views. TECHNIQUE: Internal rotation, external rotation, and Y view images acquired of the right shoulder. LIMITATIONS: None. FINDINGS: MINERALIZATION: Decreased. BONES: No acute fracture. No worrisome bone lesions. Acromioclavicular osteoarthropathy, mild. JOINTS: No dislocation. VISUALIZED LUNGS AND RIBS: No pneumothorax. No rib fracture. SOFT TISSUES: No radiopaque foreign body. OTHER: Right-sided chest port with catheter tip at SVC. IMPRESSION: NEGATIVE STUDY OF THE RIGHT SHOULDER. NO RADIOGRAPHIC EVIDENCE OF ACUTE INJURY. TECHNICAL DOCUMENTATION: JOB ID: [id number] [employer] All Rights Reserved Reading location - IP/workstation name: [email or web address]
--- NOTE | 2019-08-31 14:35 | RADIOLOGY REPORT (SQ) ---
EXAM DESCRIPTION: CERV SP 3 VIEW OR LESS COMPLETED DATE/TIME: 08/31/2019 11:30 am REASON FOR STUDY: M54.2 CERVICALGIA M25.511 PAIN IN RIGHT SHOULDER M54.2 CERVICALGIA COMPARISON: None. NUMBER OF VIEWS: Three views. TECHNIQUE: AP, lateral and odontoid radiographic images acquired of the cervical spine. LIMITATIONS: None. FINDINGS: MINERALIZATION: Normal. ALIGNMENT: Anatomic. VERTEBRAE: Vertebral bodies of normal height. DISCS: Discs are narrowed from C4-C7 with marginal osteophytes. The osteophytes at C6-7 appear to in clude uncovertebral osteophytes. HARDWARE: None in the spine. SOFT TISSUES: No masses or calcifications. Lung apices clear. OTHER: No other significant finding. IMPRESSION: Degenerative disc disease and spondylosis. TECHNICAL DOCUMENTATION: JOB ID: [id number] [email or web address]- All Rights Reserved Reading location - IP/workstation name: [email or web address]
== END ==
LOC: RAD 11:11
PROVIDERS: ATTEND Nurse Practitioner Primary Care
DX: M25.511 Pain in right shoulder (principal); M50.323 Other cervical disc degeneration at C6-C7 level; M54.2 Cervicalgia
CPT/HCPCS: 72040

== ENCOUNTER 2019-09-05 12:45 | Outpatient (CLI) | payer BC, MEDICARE ==
[2019-09-05 13:11] VITALS: BP 133/66
== END 2019-09-05 14:28 | disposition home or self-care (01) ==
LOC: II 12:45 → 5TH 12:48 → II 14:28
PROVIDERS: ATTEND Internal Medicine
DX: Z51.11 Encounter for antineoplastic chemotherapy (principal); C34.90 Malignant neoplasm of unspecified part of unspecified bronchus or lung
CPT/HCPCS: 96413; J9271; J1642

== ENCOUNTER 2019-09-26 12:20 | Outpatient (CLI) | payer MEDICARE ==
[~2019-09-26 12:20] MED LIST changes: +NORMAL SALINE 250 ML @ KVO IV PRN; -NORMAL SALINE 250 ML IV PRN
[2019-09-26 12:34] VITALS: BP 132/77
== END 2019-09-26 13:39 | disposition home or self-care (01) ==
LOC: II 12:20 → 5TH 13:05 → II 13:39
PROVIDERS: ATTEND Internal Medicine
DX: Z51.11 Encounter for antineoplastic chemotherapy (principal); C34.90 Malignant neoplasm of unspecified part of unspecified bronchus or lung
CPT/HCPCS: 96413; J9271; J1642

== ENCOUNTER 2019-10-17 12:12 | Outpatient (CLI) | payer MEDICARE, OTHER ==
[~2019-10-17 12:12] MED LIST changes: -NORMAL SALINE 250 ML @ KVO IV PRN; +NORMAL SALINE 250 ML IV PRN
[2019-10-17 12:42] VITALS: BP 96/50
== END 2019-10-17 13:30 | disposition home or self-care (01) ==
LOC: II 12:12 → 5TH 12:30 → II 13:30
PROVIDERS: ATTEND Internal Medicine
DX: Z51.11 Encounter for antineoplastic chemotherapy (principal); C34.90 Malignant neoplasm of unspecified part of unspecified bronchus or lung
CPT/HCPCS: 96413; J9271; J1642

== ENCOUNTER 2019-11-07 11:17 | Outpatient (CLI) | payer MEDICARE ==
[2019-11-07 11:29] VITALS: BP 123/77
== END 2019-11-07 12:35 | disposition home or self-care (01) ==
LOC: II 11:17 → 5TH 11:58 → II 12:35
PROVIDERS: ATTEND Internal Medicine
DX: Z51.11 Encounter for antineoplastic chemotherapy (principal); C34.90 Malignant neoplasm of unspecified part of unspecified bronchus or lung
CPT/HCPCS: 96413; J9271; J1642

== ENCOUNTER 2019-11-28 10:15 | Outpatient (CLI) | payer MEDICARE ==
[2019-11-28 10:24] VITALS: BP 112/65
== END 2019-11-28 11:43 | disposition home or self-care (01) ==
LOC: II 10:15 → 5TH 10:17 → II 11:43
PROVIDERS: ATTEND Internal Medicine
DX: Z51.11 Encounter for antineoplastic chemotherapy (principal); C34.90 Malignant neoplasm of unspecified part of unspecified bronchus or lung
CPT/HCPCS: 96413; J9271; J1642

== ENCOUNTER 2019-12-19 10:42 | Outpatient (CLI) | payer MEDICARE ==
[2019-12-19 10:53] VITALS: BP 107/63
== END 2019-12-19 12:20 | disposition home or self-care (01) ==
LOC: 5TH 10:42 → II 10:42
PROVIDERS: ATTEND Internal Medicine
DX: Z51.11 Encounter for antineoplastic chemotherapy (principal); C34.90 Malignant neoplasm of unspecified part of unspecified bronchus or lung
CPT/HCPCS: 96413; J9271; J1642

== ENCOUNTER → 2019-12-19 | Outpatient (CLI) | payer MEDICARE ==
--- NOTE | 2019-12-19 17:39 | RADIOLOGY REPORT (SQ) ---
EXAM DESCRIPTION: MRI HEAD COMBO IMAGES COMPLETED DATE/TIME: 12/19/2019 4:51 pm REASON FOR STUDY: C34.90 MALIGNANT NEOPLASM OF UNSP PART OF UNSP BRONCHUS OR LUNG C34.90 MALIGNANT NEOPLASM OF UNSP PART OF UNSP BRONCHUS OR L COMPARISON: CT brain 05/05/2019 MRI brain 05/05/2019 Whole-body bone scan 07/02/2019 TECHNIQUE: Multiplanar imaging includes noncontrasted T1, T2, FLAIR, diffusion with ADC map and post gadolinium contrast T1 sequences. Images stored on PACS. CONTRAST TYPE AND DOSE: 10 mL Dotarem. RENAL FUNCTION: Not indicated. ACR Type II contrast agent associated with few, if any, unconfounded cases of NSF LIMITATIONS: None. FINDINGS: CSF SPACES: Normal in size and contour. No hemorrhage. CEREBRUM: Patient is post right posterior frontal craniotomy and resection of a brain metastatic lesi on in the right posterior frontal carbajal-white junction. A tiny focus of encephalomalacia is present a long the right precentral gyrus axial T2 image 30. Minimal adjacent increased FLAIR/ T2 signal from gliosis. No contrast enhancement worrisome for recurrent tumor. Benign dural enhancement deep to th e craniotomy flap. Remainder of the brain parenchyma demonstrates mild spotty increased FLAIR/ T2 signal in the bifronta l and biparietal white matter from chronic small vessel ischemic change. POSTERIOR FOSSA: No signal alteration. No hemorrhage. No edema, masses, or mass effect. Internal albert tory canals, cerebellopontine angles, mastoids normal. No enhancing lesions. No abnormal enhancement post contrast. DIFFUSION IMAGING: Negative for acute or subacute infarction. ORBITS: No masses. Globes normal. PARANASAL SINUSES: No fluid levels. Mucosa normal. OTHER: No other significant finding. IMPRESSION: Post resection of a right posterior frontal metastatic lesion. Focal encephalomalacia i n the right precentral gyrus is present with adjacent minimal gliosis. No enhancement worrisome for recurrent tumor. EVIDENCE OF ACUTE STROKE: NO. TECHNICAL DOCUMENTATION: JOB ID: [id number] 2010 [employer]- All Rights Reserved Reading location - IP/workstation name: [email or web address]
== END ==
LOC: RAD 15:43
PROVIDERS: ATTEND Internal Medicine
DX: C34.90 Malignant neoplasm of unspecified part of unspecified bronchus or lung (principal)
CPT/HCPCS: 82565; 70553; A9576

== ENCOUNTER → 2020-01-01 | Outpatient (CLI) | payer MEDICARE, OTHER ==
--- NOTE | 2020-01-01 13:09 | RADIOLOGY REPORT (SQ) ---
EXAM DESCRIPTION: PET CT SKULL/THIGH IMAGES COMPLETED DATE/TIME: 01/01/2020 12:10 pm REASON FOR STUDY: C34.90 MALIGNANT NEOPLASM OF UNSP PART OF UNSP BRONCHUS OR LUNG C34.90 MALIGNANT NEOPLASM OF UNSP PART OF UNSP BRONCHUS OR L COMPARISON: None. RADIONUCLIDE AND DOSE: 9.8 mCi F18 FDG The route of agent administration: Intravenous FASTING BLOOD SUGAR: 102 mg/dl CONTRAST TYPE AND DOSE: No CT contrast given. TECHNIQUE: Blood glucose level was verified. Above dose of FDG was injected intravenously. 2-D seg mented attenuation correction images were obtained from the base of the skull to the midthighs. Nonc ontrast CT images were obtained for attenuation correction and fusion with emission images. CT image s were performed without oral or intravenous contrast and are not sensitive for parenchymal lesions. A series of overlapping emission PET images were obtained. Images reviewed and manipulated at [facility] work station by the radiologist. Images stored on PACS. LIMITATIONS: None. FINDINGS: HEAD AND NECK: No areas of abnormal metabolic activity in the soft tissues of the head and neck. CHEST: No areas of abnormal metabolic activity in the chest. ABDOMEN AND PELVIS: No areas of abnormal metabolic activity in the abdomen or pelvis. Expected physi ologic activity is present in the genitourinary system and bowel. PROXIMAL LOWER EXTREMITIES: No areas of abnormal metabolic activity in the soft tissues of the lower extremities. BONES: No abnormal metabolic activity in the visualized skeleton. ADDITIONAL CT FINDINGS: Mild emphysema upper lobes. OTHER: No other significant findings. IMPRESSION: Negative PET. TECHNICAL DOCUMENTATION: JOB ID: [id number] 2010 [employer]- All Rights Reserved Reading location - IP/workstation name: [email or web address]
== END ==
LOC: RAD 08:35
PROVIDERS: ATTEND Internal Medicine
DX: Z51.11 Encounter for antineoplastic chemotherapy (principal); C34.90 Malignant neoplasm of unspecified part of unspecified bronchus or lung; C79.31 Secondary malignant neoplasm of brain
CPT/HCPCS: 78815; A9552

== ENCOUNTER 2020-03-21 10:05 | Emergency (ER) | payer MEDICARE ==
[2020-03-21] MEDS ORDERED: ONDANSETRON HCL INJ/PF 4 MG/2 ML SDV IV ONE (10:53)
[2020-03-21] MEDS ORDERED: MECLIZINE HCL 25 MG TABLET PO ONE (10:54)
[2020-03-21] MEDS ORDERED: NORMAL SALINE 1000 ML 1,000 ML IV ONE (10:54)
--- NOTE | 2020-03-21 10:55 | ER Document Report ---
ED Medical Screen (RME) - General Chief Complaint: Abdominal Pain Stated Complaint: ABDOMINAL PAIN Time Seen by Provider: 03/21/20 10:48 Primary Care Provider: REAL SAVAGE FNP-C [Primary Care Provider] - Follow up as needed Mode of Arrival: Wheelchair Information source: Patient Notes: Patient presents with a 6-day history of abdominal pain. Patient states that initially the pain was to the upper abdomen but is since migrated to the left lower quadrant. Patient reports nausea vomiting x1 episode today. Patient denies any fever or urinary symptoms. Patient complains of dizziness as well. Patient reports a history of GERD, hypertension, dyslipidemia, restless leg syndrome. I have greeted and performed a rapid initial assessment of this patient. A c omprehensive ED assessment and evaluation of the patient, analysis of test results and completion of the medical decision making process will be conducted by additional ED providers. TRAVEL OUTSIDE OF THE [place] IN LAST 30 DAYS: No - Related Data Allergies/Adverse Reactions: minocycline Allergy (Verified 07/09/19 06:48) aspirin Adverse Reaction (Verified 05/04/19 23:44) Past Medical History - Social History Chew tobacco use (# tins/day): No Frequency of alcohol use: Occasional Drug Abuse: None - Past Medical History Cardiac Medical History: Reports: Hx Hypercholesterolemia, Hx Hypertension Denies: Hx Coronary Artery Disease, Hx Heart Attack Pulmonary Medical History: Denies: Hx Asthma, Hx Bronchitis, Hx COPD, Hx Pneumonia Neurological Medical History: Denies: Hx Cerebrovascular Accident, Hx Seizures Musculoskeltal Medical History: Reports Hx Arthritis - neck back - Immunizations Immunizations up to date: Yes Hx Diphtheria, Pertussis, Tetanus Vaccination: Yes Physical Exam - Vital signs Vitals: Temp Pulse Resp BP Pulse Ox 98.5 F 109 H 22 H 129/60 H 97 03/21/20 10:13 03/21/20 10:13 03/21/20 10:13 03/21/20 10:13 03/21/20 10:13 - Abdominal Tenderness: Tender - Left lower quadrant tenderness Course - Vital Signs Vital signs: Temp Pulse Resp BP Pulse Ox 98.5 F 109 H 22 H 129/60 H 97 03/21/20 10:13 03/21/20 10:13 03/21/20 10:13 03/21/20 10:13 03/21/20 10:13 Doctor's Discharge - Discharge Referrals: REAL SAVAGE, PROGRAM CONSULTANT-C [Primary Care Provider] - Follow up as needed
[2020-03-21 11:22] LABS: ABSOLUTE BASOPHILS # (AUTO) 0.1 10^3/uL (0.0-0.2); ABSOLUTE LYMPHOCYTES (AUTO) 2.4 10^3/uL (0.5-4.7); ABSOLUTE MONOCYTES (AUTO) 0.7 10^3/uL (0.1-1.4); ABSOLUTE NEUT (AUTO) 2.2 10^3/uL (1.7-8.2); EOSINOPHILS % (AUTO) 0.2 % (0-6); HEMATOCRIT 46.9 % (36.0-47.0); HEMOGLOBIN 16.5 g/dL (12.0-15.5); LYMPHOCYTES % (AUTO) 44.7 % (13-45); MEAN CORPUSCULAR HGB CONC 35.3 g/dL (32.0-36.0); MEAN CORPUSCULAR VOLUME 97 fl (80-97); MONOCYTES % (AUTO) 12.5 % (3-13); PLATELET COUNT 318 10^3/uL (150-450); RED BLOOD COUNT 4.86 10^6/uL (3.72-5.28); RED CELL DISTRIBUTION WIDTH 13.6 % (11.5-14.0); SEGMENTED NEUTROPHILS % (AUTO) 41.6 % (42-78); TOTAL CELLS COUNTED % (AUTO) 100 %; WHITE BLOOD COUNT 5.4 10^3/uL (4.0-10.5)
[2020-03-21 11:44] LABS: ALBUMIN 4.5 g/dL (3.5-5.0); ALKALINE PHOSPHATASE 78 U/L (38-126); ANION GAP 7 (5-19); ASPARTATE AMINO TRANSFERASE 26 U/L (14-36); BILIRUBIN,DIRECT 0.2 mg/dL (0.0-0.4); BILIRUBIN,TOTAL 0.9 mg/dL (0.2-1.3); BLOOD UREA NITROGEN 11 mg/dL (7-20); CALCIUM 9.7 mg/dL (8.4-10.2); CARBON DIOXIDE 27 mmol/L (22-30); CHLORIDE 103 mmol/L (98-107); GLUCOSE 113 mg/dL (75-110); POTASSIUM 3.8 mmol/L (3.6-5.0); TOTAL PROTEIN 7.2 g/dL (6.3-8.2)
--- NOTE | 2020-03-21 12:31 | ER Document Report ---
ED GI/ - General Chief Complaint: Abdominal Pain Stated Complaint: ABDOMINAL PAIN Time Seen by Provider: 03/21/20 10:48 Primary Care Provider: REAL SAVAGE FNP-C [NO LOCAL MD] - Follow up as needed Mode of Arrival: Wheelchair Notes: CHIEF COMPLAINT: Abdominal pain HPI: 64-year-old female presenting with abdominal pain over the last 6 days. Patient states that she had developed upper abdominal discomfort similar to gastritis that she has had since she was a child. Burning and discomfort with eating in the epigastric region which is now rotated into the lower abdomen. States this also sometimes happens with her gastritis. States she had a colonoscopy 4 years ago that was normal. No history of diverticular disease that she is aware of. Patient states that the reason she is presenting today is because of the continuation of the left lower quadrant pain. No dysuria. No f ever. Patient states she has not been eating well over the last 6 days because of the upper abdominal discomfort. No chest pain no shortness of breath. No radiation of the pain into the back. Patient states that her upper abdominal pain is completely resolved at this time. Patient states that when she was making food this morning she became somewhat lightheaded when she was standing and it resolved when she sat back down. States that when she turns her head to the left or to the right she does feel slightly lightheaded, no room spinning sensation no history of vertigo. No headache no vision change ROS: See HPI - all other systems were reviewed and are otherwise negative Constitutional: no fever Eyes: no drainage, no blurred vision ENT: no runny nose, no sore throat Cardiovascular: no chest pain Resp: no SOB, no cough GI: no vomiting, no diarrhea, + abdominal pain : no dysuria Integumentary: no rash Allergy: no hives Musculoskeletal: no extremity pain or swelling Neurological: no numbness/tingling, no weakness, positive lightheadedness MEDICATIONS: I agree with the patient medications as charted by the RN. ALLERGIES: I agree with the allergies as charted by the RN. PAST MEDICAL HISTORY/PAST SURGICAL HISTORY: Reviewed and agree as charted by RN. SOCIAL HISTORY: Reviewed and agree as charted by RN. FAMILY HISTORY: No significant familial comorbid conditions directly related to patient complaint EXAM: Reviewed vital signs as charted by RN. CONSTITUTIONAL: Alert and oriented and responds appropriately to questions. Well-appearing; well-nourished HEAD: Normocephalic; atraumatic EYES: PERRL; Conjunctivae clear, sclerae non-icteric. No nystagmus ENT: normal nose; no rhinorrhea; moist mucous membranes; pharynx without lesions noted, no uvula edema or deviation, no tonsillar hypertrophy, phonation normal NECK: Supple without meningismus; non-tender; no cervical lymphadenopathy, no masses CARD: RRR; no murmurs, no clicks, no rubs, no gallops; symmetric distal pulses RESP: Normal chest excursion without splinting or tachypnea; breath sounds clear and equal bilaterally; no wheezes, no rhonchi, no rales, pulse oximetry 98% on room air not hypoxic ABD/GI: Normal bowel sounds; non-distended; soft, no tenderness in the upper abdomen on palpation, mild tenderness in the left lower quadrant on palpation, no rebound, no guarding; no palpable organomegaly or masses. BACK: The back appears normal and is non-tender to palpation, there is no CVA tenderness EXT: Normal ROM in all joints; non-tender to palpation; no cyanosis, no effusions, no edema SKIN: Normal color for age and race; warm; dry; good turgor; no acute lesions noted NEURO: Moves all extremities equally; Motor and sensory function intact PSYCH: The patient's mood and manner are appropriate. Grooming and personal hygiene are appropriate. MDM: 64-year-old female primary presentation for left lower quadrant pain. Did have some upper abdominal discomfort initial screening labs placed in triage process. Upper abdominal pain is completely resolved there was never any chest pain or shortness of breath. Given patient's age will obtain EKG and 1 set of screening cardiac labs. We will plan for CT abdomen to evaluate for diverticulitis given the pain in the left lower quadrant region. Patient reports some lightheadedness with position change specifically, likely mild dehydration low suspicion for CVA, no other neurologic symptoms. TRAVEL OUTSIDE OF THE [place] IN LAST 30 DAYS: No - Related Data Allergies/Adverse Reactions: minocycline Allergy (Verified 07/09/19 06:48) aspirin Adverse Reaction (Verified 05/04/19 23:44) Past Medical History - General Information source: Patient - Social History Smoking Status: Current Every Day Smoker Chew tobacco use (# tins/day): No Frequency of alcohol use: Occasional Drug Abuse: None Family History: Reviewed & Not Pertinent - Past Medical History Cardiac Medical History: Reports: Hx Hypercholesterolemia, Hx Hypertension Denies: Hx Coronary Artery Disease, Hx Heart Attack Pulmonary Medical History: Denies: Hx Asthma, Hx Bronchitis, Hx COPD, Hx Pneumonia Neurological Medical History: Denies: Hx Cerebrovascular Accident, Hx Seizures Musculoskeletal Medical History: Reports Hx Arthritis - neck back - Immunizations Immunizations up to date: Yes Hx Diphtheria, Pertussis, Tetanus Vaccination: Yes Physical Exam - Vital signs Vitals: Temp Pulse Resp BP Pulse Ox 98.5 F 109 H 22 H 129/60 H 97 03/21/20 10:13 03/21/20 10:13 03/21/20 10:13 03/21/20 10:13 03/21/20 10:13 Course - Re-evaluation Re-evalutation: 03/21/20 14:50 There were no kidney stones identified on CT. Patient is noted to have microscopic hematuria. Follow-up with urology. Follow-up with gastroenterology regarding the gastritis. Will ensure that patient is on Protonix, Bentyl for spasm. 03/21/20 14:51 EKG normal sinus rhythm with a ventricular rate of 78, NH 172. QT 376. No other ectopy is noted. Reviewed by emergency department attending physician - Vital Signs Vital signs: Temp Pulse Resp BP Pulse Ox 98.5 F 109 H 22 H 129/60 H 97 03/21/20 10:13 03/21/20 10:13 03/21/20 10:13 03/21/20 10:13 03/21/20 10:13 - Laboratory Result Diagrams: 03/21/20 11:18 03/21/20 11:18 Laboratory results interpreted by me: 03/21/20 03/21/20 03/21/20 11:18 11:18 13:51 Hgb 16.5 H MCH 34.0 H Seg Neutrophils % 41.6 L Est GFR ( Amer) 56 L Est GFR (MDRD) Non-Af 46 L Glucose 113 H Urine Ketones TRACE H Urine Blood LARGE H Discharge - Discharge Clinical Impression: Abdominal pain, epigastric, Abdominal pain, LLQ (left lower quadrant) Hematuria Qualifiers: Hematuria type: unspecified type Qualified Code(s): R31.9 - Hematuria, unspecified Condition: Stable Disposition: HOME, SELF-CARE Additional Instructions: Follow-up with your primary care provider for further evaluation of your symptoms. A referral is also been given to you for gastroenterology given your longstanding gastritis issues, take the Protonix to help with this. Take Bentyl for abdominal pain or spasm. It was noted on your lab work today that you have some blood in the urine, there was no evidence of kidney stones on the CT imaging and this should be further evaluated by urology. Call for appointment Prescriptions: Dicyclomine HCl [Bentyl 20 mg Tablet] 20 mg PO Q6H PRN #20 tablet PRN Reason: Pantoprazole Sodium [Protonix [address] Tablet] 20 mg PO DAILY #30 tablet. Referrals: REAL SAVAGE FNP-C [NO LOCAL MD] - Follow up as needed AFTAB CARTAGENA MD [ACTIVE STAFF] - Follow up as needed WILLIAM CULP MD [NO LOCAL MD] - Follow up as needed
[2020-03-21] MEDS ORDERED: DICYCLOMINE HCL 20 MG TABLET PO ONE (13:30)
--- NOTE | 2020-03-21 13:42 | RADIOLOGY REPORT (SQ) ---
EXAM DESCRIPTION: CT ABD/PELVIS WITH IV ONLY IMAGES COMPLETED DATE/TIME: 03/21/2020 1:15 pm REASON FOR STUDY: LLQ pain COMPARISON: PET from 12/29/2019. TECHNIQUE: CT scan of the abdomen and pelvis performed using helical scanning technique with dynamic intravenous contrast injection. No oral contrast. Images reviewed with lung, soft tissue, and bone windows. Reconstructed coronal and sagittal MPR images reviewed. Delayed images for evaluation of the urinary system also acquired. All images stored on PACS. All CT scanners at this facility use dose modulation, iterative reconstruction, and/or weight based d osing when appropriate to reduce radiation dose to as low as reasonably achievable (ALARA). [facility]: Dose Right [facility]: CareDose [facility]: Dose Right [facility]: Teradose 4D [facility]: [employer] CONTRAST TYPE AND DOSE: Contrast/concentration: Isovue 350.00 mmol/ml; Total Contrast Delivered: 78. 0 ml; Total Saline Delivered: 67.0 ml RENAL FUNCTION: Creatinine 1.17 milligrams/deciliter. RADIATION DOSE: CT Rad equipment meets quality standard of care and radiation dose reduction techniq ues were employed. CTDIvol: 5.9 - 8.2 mGy. DLP: 730 mGy-cm. LIMITATIONS: None. FINDINGS: LOWER CHEST: No acute findings. LIVER: The relative hypoattenuation of the hepatic parenchyma compared to the splenic parenchyma on t he portal venous phase is suggestive of underlying hepatic steatosis. The portal veins are patent. There is no hepatic mass. SPLEEN: No splenomegaly or splenic mass. PANCREAS: No acute gross abnormality of the pancreas. GALLBLADDER: No abnormality that is apparent on CT. ADRENAL GLANDS: Punctate calcifications in the medial limb of the right adrenal gland and lateral goodman b of the left adrenal gland. There is no adrenal mass. RIGHT KIDNEY AND URETER: No solid mass, hydronephrosis, nephrolithiasis, hydroureter or ureterolithia sis. LEFT KIDNEY AND URETER: No solid mass, hydronephrosis, nephrolithiasis, hydroureter or ureterolithia sis. AORTA AND VESSELS: Atherosclerotic calcification of the abdominal aorta and iliac arteries. There is no aneurysm or dissection. RETROPERITONEUM: No retroperitoneal adenopathy, hemorrhage or mass. BOWEL AND PERITONEAL CAVITY: No bowel obstruction, bowel wall thickening or pericolonic/ perienteric inflammation. No mesenteric adenopathy, free intraperitoneal fluid or mesenteric/omental inflammatio n. APPENDIX: Normal. PELVIS: Uterine fibroids. There is no abnormality of the urinary bladder that is apparent on CT. ABDOMINAL WALL: No mass or hernia. BONES: Degenerative spondylosis of the lumbar spine. There is no acute fracture or malalignment. OTHER: No other finding. IMPRESSION: No acute intra-abdominal abnormality. TECHNICAL DOCUMENTATION: JOB ID: [id number] Quality ID # [id number]: Final reports with documentation of one or more dose reduction techniques (e.g., Au tomated exposure control, adjustment of the mA and/or kV according to patient size, use of iterative reconstruction technique) 2010 [employer]- All Rights Reserved Reading location - IP/workstation name: [email or web address]
[2020-03-21 14:30] LABS: APPEARANCE,URINE CLEAR; BILIRUBIN,URINE NEGATIVE (NEGATIVE); COLOR,URINE YELLOW; GLUCOSE, URINE NEGATIVE (NEGATIVE); KETONES,URINE TRACE mg/dL (NEGATIVE); LEUKOCYTE ESTERASE,URINE NEGATIVE (NEGATIVE); NITRITE,URINE NEGATIVE (NEGATIVE); PROTEIN,URINE NEGATIVE (NEGATIVE); URINE SPECIFIC GRAVITY 1.035; UROBILINOGEN,URINE NEGATIVE mg/dL (<2.0)
[2020-03-21 15:14] VITALS: BP 131/72
--- NOTE | 2020-03-21 23:34 | EKG REPORT ---
SEVERITY:- NORMAL ECG - SINUS RHYTHM : Confirmed by: Mara Carlson MD 21-Mar-2020 23:33:39
== END 2020-03-21 15:14 | disposition home or self-care (01) ==
LOC: ER 10:05
DX: R10.13 Epigastric pain (principal); R10.32 Left lower quadrant pain; R31.9 Hematuria, unspecified; R42 Dizziness and giddiness; R10.10 Upper abdominal pain, unspecified; R10.30 Lower abdominal pain, unspecified; E86.0 Dehydration; F17.200 Nicotine dependence, unspecified, uncomplicated; Z88.8 Allergy status to other drugs, medicaments and biological substances
CPT/HCPCS: 93005; 99285; 96361; 96374; 36415; 83690; 85025; 80053; 81001; 84484; 74177; 93010; A9270 ×2; J2405; J7030; J3490

== ENCOUNTER → 2020-03-27 | Outpatient (CLI) | payer MEDICARE ==
--- NOTE | 2020-03-27 11:32 | RADIOLOGY REPORT (SQ) ---
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 CT abdomen pelvis 03/21/2020. TECHNIQUE: CT scan of the chest performed using helical scanning technique with dynamic intravenous contrast injection. Images reviewed with lung, soft tissue and bone windows. Reconstructed coronal and sagittal MPR and MIP images reviewed. All images stored on PACS. All CT scanners at this facility use dose modulation, iterative reconstruction, and/or weight based d osing when appropriate to reduce radiation dose to as low as reasonably achievable (ALARA). [facility]: Dose Right [facility]: CareDose [facility]: Dose Right [facility]: Teradose 4D [facility]: delicious CONTRAST TYPE AND DOSE: contrast/concentration: Isovue 350.00 mmol/ml; Total Contrast Delivered: 36. 5 ml; Total Saline Delivered: 38.9 ml RENAL FUNCTION: GFR > 60. RADIATION DOSE: CT Rad equipment meets quality standard of care and radiation dose reduction techniq ues were employed. CTDIvol: 4.6 mGy. DLP: 181 mGy-cm. . LIMITATIONS: None. FINDINGS: LUNGS AND PLEURA: Mild centrilobular emphysema. Stable scarring posterior right upper lob e. No developing nodules or infiltrate. HILAR AND MEDIASTINAL STRUCTURES: No identified masses or abnormal nodes. HEART AND VASCULAR STRUCTURES: No aneurysm or dissection. No central pulmonary emboli. No pericardi al effusion. HARDWARE: None in the chest. UPPER ABDOMEN: See separate report of the CT of the abdomen. THYROID AND OTHER SOFT TISSUES: No masses. No adenopathy. BONES: No significant finding. OTHER: No other significant finding. IMPRESSION: No evidence of local recurrence or metastatic disease. TECHNICAL DOCUMENTATION: JOB ID: [id number] Quality ID # [id number]: Final reports with documentation of one or more dose reduction techniques (e.g., Au tomated exposure control, adjustment of the mA and/or kV according to patient size, use of iterative reconstruction technique) 2010 [employer]- All Rights Reserved Reading location - IP/workstation name: [email or web address]
== END ==
LOC: RAD 07:46
PROVIDERS: ATTEND Nurse Practitioner Family
DX: C34.90 Malignant neoplasm of unspecified part of unspecified bronchus or lung (principal)
CPT/HCPCS: 71260

== ENCOUNTER → 2020-07-15 | Outpatient (CLI) | payer MEDICARE ==
--- NOTE | 2020-07-15 10:21 | RADIOLOGY REPORT (SQ) ---
EXAM DESCRIPTION: CT CHEST WITH IMAGES COMPLETED DATE/TIME: 07/15/2020 8:07 am REASON FOR STUDY: LUNG CA C34.90 MALIGNANT NEOPLASM OF UNSP PART OF UNSP BRONCHUS OR L COMPARISON: 04/23/2020. TECHNIQUE: CT scan of the chest performed using helical scanning technique with dynamic intravenous contrast injection. Images reviewed with lung, soft tissue and bone windows. Reconstructed coronal and sagittal MPR and MIP images reviewed. All images stored on PACS. All CT scanners at this facility use dose modulation, iterative reconstruction, and/or weight based d osing when appropriate to reduce radiation dose to as low as reasonably achievable (ALARA). [facility]: Dose Right [facility]: CareDose [facility]: Dose Right [facility]: Teradose 4D [facility]: Stylect CONTRAST TYPE AND DOSE: contrast/concentration: Isovue 350.00 mmol/ml; Total Contrast Delivered: 80. 0 ml; Total Saline Delivered: 39.9 ml RENAL FUNCTION: Creatinine 1.1. RADIATION DOSE: CT Rad equipment meets quality standard of care and radiation dose reduction techniq ues were employed. CTDIvol: 3.9 mGy. DLP: 153 mGy-cm. . LIMITATIONS: None. FINDINGS: LUNGS AND PLEURA: Mild upper lobe emphysematous changes. Mild focal scarring in the poste rior right lung. No opacities, nodules, masses. No pneumothorax. No effusions. HILAR AND MEDIASTINAL STRUCTURES: No identified masses or abnormal nodes. HEART AND VASCULAR STRUCTURES: No aneurysm or dissection. No central pulmonary emboli. No pericardi al effusion. HARDWARE: None in the chest. UPPER ABDOMEN: No significant findings. Limited exam. THYROID AND OTHER SOFT TISSUES: No masses. No adenopathy. BONES: No significant finding. OTHER: No other significant finding. IMPRESSION: STABLE MILD CHRONIC CHANGES. NO ACUTE FINDINGS. NO EVIDENCE OF FOCAL OR METASTATIC DIS EASE IN THE CHEST. TECHNICAL DOCUMENTATION: JOB ID: [id number] Quality ID # [id number]: Final reports with documentation of one or more dose reduction techniques (e.g., Au tomated exposure control, adjustment of the mA and/or kV according to patient size, use of iterative reconstruction technique) 2010 [employer]- All Rights Reserved Reading location - IP/workstation name: [email or web address]
== END ==
LOC: RAD 07:30
PROVIDERS: ATTEND Internal Medicine Hematology & Oncology
DX: C34.90 Malignant neoplasm of unspecified part of unspecified bronchus or lung (principal)
CPT/HCPCS: 71260; 82565